=== PATIENT | male | born 2000 | race Caucasian/White ===

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

== ENCOUNTER 2024-07-05 07:18 | Day surgery (SDC) | payer OTHER, BC ==
[~2024-07-05] VITALS: Ht 182.9 cm; Wt 123.2 kg
[2024-07-05] MEDS ORDERED: NS 500 ML IV ONE ×2 (07:21→08:27)
[2024-07-05] MEDS ORDERED: Sodium Bicarb 8.4% 1 MEQ/ML 50 ML Vial ONE (07:52)
[2024-07-05] MEDS ORDERED: Lidocaine 1%-Epineph 1:100000 20 ML MDV ONE (08:01)
[2024-07-05] MEDS ORDERED: CeFAZolin Sodium 2,000 MG VIAL ONE (08:12)
[2024-07-05] MEDS ORDERED: CeFAZolin Sodium 3,000 MG VIAL ONE (08:14)
--- NOTE | 2024-07-05 08:42 | NUR ---
07/05/24 0842 Cristin Edwarsd 0836: TIMEOUT FOR PRE-OP INJECTION 0837: 7 CC TOTAL OF MIX OF 9 CC 1% LIDOCAINE WITH EPINEPHRINE 1:100,000 WITH 1 CC SODIUM BICARBONATE PER VERBAL ORDER, INJCTION COMPLETED BY DR GARY. ORDER READ BACK TO DR GARY.
[2024-07-05] MEDS ORDERED: Midazolam HCl 1MG / ML 2ML Vial ONE (08:44)
[2024-07-05] MEDS ORDERED: propofoL 20 ML IV ONE (08:49)
[2024-07-05] MEDS ORDERED: FentaNYL Citrate 50 MCG/ML 2 ML Injection ONE (08:50)
[2024-07-05] MEDS ORDERED: Dexamethasone Sod Phos 10 MG/ML 1ML VIAL ONE (08:52)
[2024-07-05] MEDS ORDERED: Ondansetron HCl 2 MG / ML 2ML Vial ONE (08:52)
[2024-07-05] MEDS ORDERED: Ketorolac Tromethamine 30mg Vial ONE (09:16)
--- NOTE | 2024-07-05 09:59 | NUR ---
07/05/24 0959 Luz Maria Siegel PT TO PACU WITH AIRWAY IN PLACE. PT AROUSABLE AND AIRWAY REMOVED AT 0947. PATIENT ABLE TO FOLLOW COMMANDS AND ANSWER QUESTIONS. PATIENT DENIES PAIN OR NAUSEA PRIOR TO LEAVING PACU.
[2024-07-05 10:16] VITALS: BP 129/87
== END 2024-07-05 10:44 | disposition home or self-care (01) ==
LOC: ORSCSDS 07:18
PROVIDERS: Orthopaedic Surgery
PROC: 0LQ70ZZ Repair Right Hand Tendon, Open Approach (ICD-10-PCS; principal; 2024-07-05 08:45)
PROC: 0LN70ZZ Release Right Hand Tendon, Open Approach (ICD-10-PCS; principal; 2024-07-05 08:45)
DX: S66.322A Laceration of extensor muscle, fascia and tendon of right middle finger at wrist and hand level, initial encounter (principal); W45.8XXA Other foreign body or object entering through skin, initial encounter; E66.9 Obesity, unspecified; Z68.36 Body mass index [BMI] 36.0-36.9, adult; F17.290 Nicotine dependence, other tobacco product, uncomplicated
CPT/HCPCS: J0690; J1100; J1885; J2250; J2405; J2704; J3010; J7040